=== PATIENT | male | born 1950 | race Caucasian/White ===

== ENCOUNTER 2020-11-03 13:52 | Emergency (ER) | payer MEDICARE, OTHER ==
[2020-11-03 16:45] LABS: HEMOGLOBIN 15.3 gm/dl (14.0-17.5); RED BLOOD COUNT 4.71 M/UL (4.20-5.50)
[2020-11-03 17:13] LABS: BUN/CREATININE RATIO 16 (0-10)
[2020-11-03] MEDS ORDERED: HYDROCODON-ACE1 EAC4 PO (18:17)
== END 2020-11-03 19:08 | disposition home or self-care (01) ==
LOC: ER1 13:52
PROVIDERS: Physician Assistant
DX: N20.0 Calculus of kidney (principal); K80.20 Calculus of gallbladder without cholecystitis without obstruction; N32.89 Other specified disorders of bladder; R31.0 Gross hematuria
CPT/HCPCS: 80053; 81001; 85025; 85610; 85730; 99284